=== PATIENT | male | born 1985 | race Caucasian/White ===

== ENCOUNTER 2018-11-13 05:28 | Emergency (ER) | payer MEDICAID, OTHER ==
[~2018-11-13] VITALS: Ht 165.1 cm; Wt 136.3 kg
[~2018-11-13 05:28] MED LIST: IBUP-1542 PO
[2018-11-13 05:32] VITALS: BP 150/85; PULSE 81; RESP 18; Ht 165.1 cm; Wt 136.3 kg
[2018-11-13] MEDS ORDERED: KETOROLAC 30 MG INJ IM STA (06:33)
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
== END 2018-11-13 07:06 | disposition home or self-care (01) ==
LOC: FTE 05:28
DX: M72.2 Plantar fascial fibromatosis (principal)
CPT/HCPCS: 96372; J1885; Z7502